=== PATIENT | female | born 1995 | race Caucasian/White ===

== ENCOUNTER 2016-11-26 15:03 | Emergency (ER) | payer BC, OTHER ==
[~2016-11-26] VITALS: Ht 154.9 cm; Wt 74.6 kg
[2016-11-26 15:18] VITALS: BP 137/75
[2016-11-26 16:34] LABS: BILIRUBIN,URINE Negative (Negative); CLARITY,URINE Clear; COLOR,URINE Yellow; GLUCOSE, URINE (UA) Negative (Negative); LEUKOCYTE ESTERASE ,URINE Negative (Negative); UROBILINOGEN,URINE 0.2 mg/dL (0.2-1.0)
--- NOTE | 2016-11-26 16:34 | NUR ---
pt drank 1000cc of h20 prior to us
[2016-11-26 16:54] LABS: URINE CENTRIFUGED VOLUME 12 mL
[2016-11-26 16:59] LABS: RBC,URINE 0-2 /HPF
[2016-11-26 17:01] LABS: HCG,QUALITATIVE URINE Negative (Negative)
--- NOTE | 2016-11-26 17:25 | NUR ---
pt unable to hold urine, us has not arrived, gave pt more water
== END 2016-11-26 19:00 | disposition home or self-care (01) ==
LOC: ED 15:05
DX: N83.292 Other ovarian cyst, left side (principal); N76.0 Acute vaginitis
CPT/HCPCS: 76830; 76856; 81003; 81015; 81025; 87210; 87491; 99283; 99284